=== PATIENT | male | born 1980 ===

== ENCOUNTER 2021-06-04 05:42 | Emergency (ER) | payer MEDICAID ==
[~2021-06-04] VITALS: Ht 167.6 cm; Wt 131.5 kg
[2021-06-04 07:12] LABS: Basophils # (auto) 0 10 ^3/uL (0-0.2); Eosinophils # (auto) 0.1 10 ^3/uL (0-0.8); Hemoglobin 12.7 g/dL (13.5-17.5); Lymphocytes # (auto) 0.8 10 ^3/uL (0.4-5.4); Monocytes # (auto) 0.6 10 ^3/uL (0-1.3)
[2021-06-04 07:15] LABS: Basophils % (auto) 0.5 % (0.0-2.0); Eosinophils % (auto) 2.3 % (0.0-7.0); Hematocrit 36.3 % (41.0-53.0); Lymphocytes % (auto) 21.1 % (10.0-50.0); Mean Corpuscular Hemoglobin 33.4 pg (28.0-32.0); Mean Corpuscular Volume 95.5 fL (80.0-100.0); Monocytes % (auto) 15.4 % (0.0-12.0); Neutrophils # (auto) 2.4 10 ^3/uL (1.6-8.6); Neutrophils % (auto) 60.7 % (37.0-80.0); Nucleated Red Blood Cells % 0.2 %; Red Cell Distribution Width 15.2 % (11.8-14.3); White Blood Cell 3.9 10^3/uL (4.4-10.8)
[2021-06-04 07:23] LABS: Albumin 1.9 g/dL (3.4-5.0); BUN/Creatinine Ratio 7.8; Calcium 8.5 mg/dL (8.5-10.1); Potassium 4.2 mmol/L (3.5-5.1)
[2021-06-04 07:26] LABS: Bilirubin, Total 3.8 mg/dL (0.2-1.0); Total Protein 7.1 g/dL (6.4-8.2)
[2021-06-04 07:59] VITALS: BP 125/54
[2021-06-04 08:05] LABS: Urine Bacteria NONE SEEN /hpf (None Seen); Urine Blood TRACE /uL (Negative); Urine Specific Gravity 1.015 (1.001-1.035); Urine WBC <1 /hpf (0 - 3)
== END 2021-06-04 09:21 | disposition home or self-care (01) ==
LOC: ER 05:42
DX: M54.9 Dorsalgia, unspecified (principal); I10 Essential (primary) hypertension; Z87.19 Personal history of other diseases of the digestive system
CPT/HCPCS: 36415; 74176; 80053; 81001; 83690; 85025